=== PATIENT | male | born 1985 | race Caucasian/White ===

== ENCOUNTER 2018-10-13 10:45 | Inpatient (IN) | payer OTHER ==
[2018-10-13 11:33] LABS: ADD MAN DIFF? NO
[2018-10-13] MEDS: ONDANSETRON 4 MG INJ IV ×2 (11:33→13:24)
[2018-10-13] MEDS: HYDROmorphONE 1 MG/ML SYG IV ×2 (11:34→13:26)
[2018-10-13 11:35] LABS: ABNORMAL IP MESSAGE 1; BASOPHIL # 0.1 10^3/ul (0.0-0.1); BASOPHILS % 0.4 % (0.0-2.0); HEMOGLOBIN 17.4 g/dl (14.0-18.0); LYMPHOCYTES # 1.4 10^3/ul (0.8-2.9); MEAN CORPUSCULAR HGB CONC 34.8 g/dl (32.0-37.0); MEAN CORPUSCULAR VOLUME 80.5 fl (82.0-101.0); MEAN PLATELET VOLUME 11.7 fl (7.4-10.4); MONOCYTE # 1.5 10^3/ul (0.3-0.9); MONOCYTES % 10.8 % (0.0-11.0); NEUTROPHILS % 78.5 % (39.0-77.0); PLATELET COUNT 301 10^3/UL (140-415); POSITIVE DIFF @See below; RED BLOOD COUNT 6.21 10^6/ul (4.70-6.10); RED CELL DISTRIBUTION WIDTH 13.5 % (11.5-14.5)
[2018-10-13 12:10] LABS: ALANINE AMINOTRANSFERASE 24 IU/L (13-69); ALBUMIN 4.8 g/dl (3.3-4.9); ALKALINE PHOSPHATASE 94 IU/L (42-121); ANION GAP 27 (5-13); ASPARTATE AMINO TRANSFERASE 41 IU/L (15-46); BILIRUBIN,INDIRECT 0.7 mg/dl (0-1.1); BILIRUBIN,TOTAL 0.7 mg/dl (0.2-1.3); BLOOD UREA NITROGEN 9 mg/dl (7-20); CALCIUM 9.4 mg/dl (8.4-10.2); CARBON DIOXIDE 14 mmol/L (21-31); CHLORIDE 98 mmol/L (97-110); CREATININE 0.83 mg/dl (0.61-1.24); Estimated GFR > 60 mL/min (>60); POTASSIUM 4.8 mmol/L (3.5-5.1); SODIUM 139 mmol/L (135-144); TOTAL PROTEIN 8.8 g/dl (6.1-8.1)
[2018-10-13 12:23] LABS: GLUCOSE 526 mg/dl (70-220)
[2018-10-13 12:39] LABS: LIPASE 9005 U/L (23-300)
[2018-10-13] MEDS: SOD CHLORIDE 0.9% 100 ML (12:44)
[2018-10-13] MEDS: IOHEXOL 300MG/ML 150 ML BTL (12:45)
[2018-10-13] MEDS: INSULIN LISPRO 100 UNIT/ML VIAL SC ×2 (13:07→22:41)
[2018-10-13] MEDS ORDERED: LIDOCAINE/MYLANTA 40 ML BTL (17:39)
[2018-10-13] MEDS: HYDROmorphONE 0.5 MG/0.5 ML SYG IV (18:18)
[2018-10-13] MEDS: SOD CHLORIDE 0.9% 1,000 ML IV ×3 (20:14→23:01)
[2018-10-13] MEDS: KETOROLAC 15 MG INJ IV (22:43)
[2018-10-13] MEDS: LORAZEPAM 2 MG INJ IV (23:01)
[2018-10-14] MEDS: HYDROmorphONE 2 MG/ML SYG IV (01:57)
[2018-10-14] MEDS ORDERED: DEXTROSE 50% 50 ML SYRINGE IV ×4 (02:00→06:30)
[2018-10-14] MEDS ORDERED: INSULIN HUMAN REGULAR 100 UNIT in SOD CHLORIDE 0.9% 99 ML IV (02:00)
[2018-10-14] MEDS ORDERED: NS + KCL 20 MEQ 1,000 ML IV (02:00)
[2018-10-14] MEDS ORDERED: CEFEPIME 2GM/50 ML (PMX) 50 ML IVPB (02:22)
[2018-10-14] MEDS: SODIUM CHLORIDE 0.9% 1L BAG IV* (02:22)
[2018-10-14 02:24] LABS: MODE ROOM AIR; MetHgb Venous 0.3 %; Sample Type Blood venous; Site VENOUS LINE; Venous COHb 1.1 %; Venous Fraction OxyHgb 83.1 %; Venous Oxygen Sat 84.3 mmHG (55.0-75.0); Venous Total Hemglobin 16.3 g/dl
[2018-10-14] MEDS: ACCU-CHEK XX (02:36)
[2018-10-14 02:45] LABS: ADD UMIC YES; UR ASCORBIC ACID NEGATIVE (NEGATIVE); UR BILIRUBIN (Dip) NEGATIVE (NEGATIVE); UR BLOOD (Dip) 1+ mg/dL (NEGATIVE); UR CLARITY CLEAR (CLEAR); UR COLOR YELLOW (YELLOW); UR GLUCOSE (Dip) 3+ mg/dL (NEGATIVE); UR KETONES (Dip) 2+ mg/dL (NEGATIVE); UR LEUKOCYTE ESTERASE (Dip) NEGATIVE Leu/ul (NEGATIVE); UR NITRITE (Dip) NEGATIVE (NEGATIVE); UR RBC 7 /HPF (0-5); UR SPECIFIC GRAVITY (Dip) 1.037 (1.003-1.030); UR TOTAL PROTEIN (Dip) 3+ mg/dl (NEGATIVE); UR UROBILINOGEN (Dip) NEGATIVE (NEGATIVE); UR WBC 1 /HPF (0-5)
[2018-10-14] MEDS: PIPER-TAZO 3.375 GM IV (PMX) 100 ML IVPB (02:47)
[2018-10-14] MEDS: ACETAMINOPHEN 325 MG TAB PO (02:47)
[2018-10-14 04:10] LABS: ALANINE AMINOTRANSFERASE 8 IU/L (13-69); ALBUMIN 3.3 g/dl (3.3-4.9); ALBUMIN/GLOBULIN RATIO 0.97; ALKALINE PHOSPHATASE 60 IU/L (42-121); ANION GAP 17 (5-13); ASPARTATE AMINO TRANSFERASE 29 IU/L (15-46); BILIRUBIN,INDIRECT 0.7 mg/dl (0-1.1); BILIRUBIN,TOTAL 0.7 mg/dl (0.2-1.3); BLOOD UREA NITROGEN 9 mg/dl (7-20); CALCIUM 6.9 mg/dl (8.4-10.2); CARBON DIOXIDE 19 mmol/L (21-31); CHLORIDE 102 mmol/L (97-110); CREATININE 0.82 mg/dl (0.61-1.24); Estimated GFR > 60 mL/min (>60); GLUCOSE 332 mg/dl (70-220); POTASSIUM 3.9 mmol/L (3.5-5.1); SODIUM 138 mmol/L (135-144); TOTAL PROTEIN 6.7 g/dl (6.1-8.1)
[2018-10-14 04:21] LABS: TROPONIN-I < 0.012 ng/ml (0.000-0.120)
[2018-10-14 04:23] LABS: INR 1.27; PARTIAL THROMBOPLASTIN TIME 27.4 Sec (23.0-35.0); PT RATIO 1.3
[2018-10-14] MEDS ORDERED: SOD CHLORIDE 0.9% 1,000 ML IV (06:02)
[2018-10-14] MEDS ORDERED: GLUCAGON 1 MG INJ IM (06:30)
[2018-10-14] MEDS ORDERED: ALBUTEROL/IPRATROPIUM (NEB) 3 ML AMP HHN (06:30)
[2018-10-14] MEDS ORDERED: NACL 0.9% 3 ML SYG IV (06:30)
[2018-10-14] MEDS ORDERED: GLUCOSE GEL 15 GRAM TUBE PO ×2 (06:30)
[2018-10-14] MEDS ORDERED: GLUCOSE GEL 15 GRAM TUBE BUCCAL (06:30)
[2018-10-14 06:54] LABS: ABNORMAL IP MESSAGE 1; HEMATOCRIT 44.4 % (42.0-52.0); MEAN CORPUSCULAR HEMOGLOBIN 27.5 pg (29.0-33.0); MEAN CORPUSCULAR HGB CONC 33.8 g/dl (32.0-37.0); MEAN CORPUSCULAR VOLUME 81.5 fl (82.0-101.0); MEAN PLATELET VOLUME 11.2 fl (7.4-10.4); PLATELET COUNT 206 10^3/UL (140-415); POSITIVE DIFF @See below; RED BLOOD COUNT 5.45 10^6/ul (4.70-6.10); RED CELL DISTRIBUTION WIDTH 13.9 % (11.5-14.5)
[2018-10-14 06:54] LABS: WHITE BLOOD COUNT 7.4 10^3/ul (4.8-10.8)
[2018-10-14 07:02] LABS: ADD MAN DIFF? YES
[2018-10-14 07:14] LABS: LACTIC ACID 1.4 mmol/L (0.5-2.0)
[2018-10-14 07:28] LABS: ANION GAP 11 (5-13); BLOOD UREA NITROGEN 9 mg/dl (7-20); CALCIUM 6.8 mg/dl (8.4-10.2); CARBON DIOXIDE 18 mmol/L (21-31); CHLORIDE 106 mmol/L (97-110); Estimated GFR > 60 mL/min (>60); GLUCOSE 309 mg/dl (70-220); MAGNESIUM 1.3 mg/dl (1.7-2.5); PHOSPHORUS 2.4 mg/dl (2.5-4.9); POTASSIUM 4.2 mmol/L (3.5-5.1); SODIUM 135 mmol/L (135-144)
[2018-10-14 08:06] LABS: BAND NEUTROPHILS #M 2.9 10^3/ul (0.0-0.6); BAND NEUTROPHILS % (M) 40 % (0-4); ERYTHROBLAST% (NRBC) (M) 1 % (0-0); GIANT THROMBO% (M) 1 % (0-0); LYMPHOCYTES #M 2.3 10^3/ul (0.8-2.9); LYMPHOCYTES % (M) 32 % (15-51); MONOCYTE #M 0.8 10^3/ul (0.3-0.9); MONOCYTES % (M) 12 % (0-11); MYELOCYTES #M 0.1 10^3/ul (0.0-0.0); MYELOCYTES % (M) 2 % (0-0); PLATELET ESTIMATE NORMAL; POIKILOCYTOSIS 1+ (0-0); POLYCHROMASIA 1+ (0-0); REACTIVE LYMPHOCYTES #M 0.1 10^3/ul (0.0-0.0); REACTIVE LYMPHOCYTES% (M) 2 % (0-0); SEG NEUT #M 1.1 10^3/ul (1.6-7.5); SEGMENTED NEUTROPHILS (M) % 12 % (39-77); SMUDGE%M 25 % (0-0); SPHEROCYTES 1+ (0-0)
[2018-10-14] MEDS: HEPARIN 5,000 UNIT/1 ML VIAL SC ×2 (08:47→20:20)
[2018-10-14] MEDS: INSULIN ASPART [NOVOLOG] 3 ML PEN SC ×4 (08:51→20:21)
[2018-10-14] MEDS: CEFTRIAXONE 1 GM/50 ML (PMX) 50 ML IVPB (08:51)
[2018-10-14] MEDS: SOD CHLORIDE 0.9% 500 ML IV (08:55)
[2018-10-14] MEDS: HYDROCODONE/APAP (5/325) TAB PO (08:55)
[2018-10-14] MEDS: INSULIN GLARGINE [LANTus] (100 UNITS/ML) SYG SC (10:00)
[2018-10-14 13:51] LABS: ETHANOL < 10.0 mg/dl (0-0)
[2018-10-14] MEDS: MAGNESIUM SULFATE 3 GM in DEXTROSE 5% 100 ML IVPB (15:03)
[2018-10-14] MEDS: LORAZEPAM 2 MG INJ IV ×4 (15:04→21:58)
[2018-10-14] MEDS: MULTIVITAMINS 10 ML, FOLIC ACID 1 MG in SOD CHLORIDE 0.9% 1,000 ML IVPB (17:40)
[2018-10-14] MEDS: NPH, HUMAN INSULIN ISOPHANE 3ML VIAL SC (17:53)
[2018-10-14] MEDS: SODIUM PHOSPHATE 20 MEQ in SOD CHLORIDE 0.9% 250 ML IVPB (18:24)
[2018-10-14] MEDS: morphine SULFATE/PF (2 MG/2 ML) SYG IV ×2 (20:14→23:21)
[2018-10-15] MEDS: LORAZEPAM 2 MG INJ IV ×4 (00:45→22:18)
[2018-10-15] MEDS ORDERED: ACCU-CHEK XX (02:00)
[2018-10-15] MEDS: SOD CHLORIDE 0.9% 1,000 ML IV ×4 (02:25→22:53)
[2018-10-15] MEDS: INSULIN ASPART [NOVOLOG] 3 ML PEN SC ×6 (02:27→21:28)
[2018-10-15] MEDS: morphine SULFATE/PF (2 MG/2 ML) SYG IV ×3 (02:43→21:18)
[2018-10-15] MEDS: ACETAMINOPHEN 325 MG TAB PO (04:55)
[2018-10-15 06:21] LABS: ADD MAN DIFF? NO
[2018-10-15 06:29] LABS: ABNORMAL IP MESSAGE 1; BASOPHIL # 0.1 10^3/ul (0.0-0.1); BASOPHILS % 1.2 % (0.0-2.0); HEMOGLOBIN 13.8 g/dl (14.0-18.0); LYMPHOCYTES # 1.2 10^3/ul (0.8-2.9); LYMPHOCYTES % 15.6 % (15.0-51.0); MEAN CORPUSCULAR HEMOGLOBIN 27.5 pg (29.0-33.0); MEAN CORPUSCULAR HGB CONC 33.7 g/dl (32.0-37.0); MEAN CORPUSCULAR VOLUME 81.7 fl (82.0-101.0); MEAN PLATELET VOLUME 11.8 fl (7.4-10.4); MONOCYTE # 0.9 10^3/ul (0.3-0.9); MONOCYTES % 12.1 % (0.0-11.0); NEUTROPHIL # 5.2 10^3/ul (1.6-7.5); PLATELET COUNT 196 10^3/UL (140-415); POSITIVE DIFF @See below; RED BLOOD COUNT 5.02 10^6/ul (4.70-6.10); RED CELL DISTRIBUTION WIDTH 13.8 % (11.5-14.5)
[2018-10-15 06:29] LABS: WHITE BLOOD COUNT 7.4 10^3/ul (4.8-10.8)
[2018-10-15] MEDS: CEFTRIAXONE 1 GM/50 ML (PMX) 50 ML IVPB (06:32)
[2018-10-15 06:47] LABS: PHOSPHORUS 1.7 mg/dl (2.5-4.9)
[2018-10-15 06:47] LABS: ALBUMIN 3.1 g/dl (3.3-4.9); ALBUMIN/GLOBULIN RATIO 0.96; ALKALINE PHOSPHATASE 47 IU/L (42-121); ANION GAP 10 (5-13); ASPARTATE AMINO TRANSFERASE 30 IU/L (15-46); BILIRUBIN,INDIRECT 0.6 mg/dl (0-1.1); BILIRUBIN,TOTAL 0.6 mg/dl (0.2-1.3); BLOOD UREA NITROGEN 11 mg/dl (7-20); CALCIUM 6.8 mg/dl (8.4-10.2); CARBON DIOXIDE 18 mmol/L (21-31); CHLORIDE 108 mmol/L (97-110); CHOL/HDL RATIO 9.5 RATIO; CHOLESTEROL 200 mg/dl (100-200); CREATININE 0.78 mg/dl (0.61-1.24); Estimated GFR > 60 mL/min (>60); GLUCOSE 280 mg/dl (70-220); HDL CHOLESTEROL 21 mg/dl (28-63); LDL CHOLESTEROL,CALCULATED 116 mg/dl; MAGNESIUM 2.4 mg/dl (1.7-2.5); POTASSIUM 3.6 mmol/L (3.5-5.1); SODIUM 136 mmol/L (135-144); TOTAL PROTEIN 6.3 g/dl (6.1-8.1); TRIGLYCERIDES 317 mg/dl (0-149)
[2018-10-15 06:49] LABS: ALANINE AMINOTRANSFERASE < 6 IU/L (13-69)
[2018-10-15 07:05] LABS: LIPASE 1865 U/L (23-300)
[2018-10-15] MEDS: MULTIVITAMINS 10 ML, FOLIC ACID 1 MG in SOD CHLORIDE 0.9% 1,000 ML IVPB (08:24)
[2018-10-15] MEDS: HEPARIN 5,000 UNIT/1 ML VIAL SC ×2 (08:29→21:28)
[2018-10-15] MEDS: INSULIN GLARGINE [LANTus] (100 UNITS/ML) SYG SC (08:30)
[2018-10-15] MEDS ORDERED: THIAMINE 200 MG INJ IM (11:00)
[2018-10-15] MEDS: THIAMINE 100 MG TAB PO (12:34)
[2018-10-15] MEDS: LACTATED RINGER'S 500 ML IV (16:40)
[2018-10-15] MEDS: METOPROLOL 5 MG INJ IV (16:40)
[2018-10-15] MEDS: ACETAMINOPHEN 650 MG SUPP PR (18:22)
[2018-10-15 18:29] LABS: AADO2 Arterial 93.5 mmHg (7.0-24.0); Allen Test ACCEPTAB; Arterial Base Excess -7.1 mmol/L (-3.0-3); Arterial Blood Gas Oxygen Sat 95.4 mmHG (95.0-98.0); Arterial COHb 1.4 % (0.0-3.0); Arterial Fraction of Oxyhgb 93.7 % (93.0-99.0); Arterial HCO3 16.6 mmol/L (22.0-26.0); Arterial MetHb 0.4 % (0.0-1.5); Arterial pCO2 28.6 mmhg (35-45); MODE NASAL CANNULA; Site Right Radial
[2018-10-15] MEDS: FISH OIL 1,000 MG CAP PO (22:16)
[2018-10-16] MEDS: INSULIN ASPART [NOVOLOG] 3 ML PEN SC ×6 (00:51→20:10)
[2018-10-16] MEDS: LORAZEPAM 2 MG INJ IV ×8 (02:27→23:34)
[2018-10-16] MEDS: CEFTRIAXONE 1 GM/50 ML (PMX) 50 ML IVPB (05:34)
[2018-10-16 06:33] LABS: ABNORMAL IP MESSAGE 1; HEMATOCRIT 35.9 % (42.0-52.0); HEMOGLOBIN 12.1 g/dl (14.0-18.0); MEAN CORPUSCULAR HEMOGLOBIN 27.7 pg (29.0-33.0); MEAN CORPUSCULAR HGB CONC 33.7 g/dl (32.0-37.0); MEAN CORPUSCULAR VOLUME 82.2 fl (82.0-101.0); MEAN PLATELET VOLUME 11.4 fl (7.4-10.4); NUCLEATED RED BLOOD CELLS% 0.2 /100WBC (0.0-0.0); PLATELET COUNT 223 10^3/UL (140-415); POSITIVE DIFF @See below; RED BLOOD COUNT 4.37 10^6/ul (4.70-6.10); RED CELL DISTRIBUTION WIDTH 14.1 % (11.5-14.5)
[2018-10-16 06:33] LABS: WHITE BLOOD COUNT 10.5 10^3/ul (4.8-10.8)
[2018-10-16 06:54] LABS: ADD MAN DIFF? YES
[2018-10-16 06:56] LABS: ALKALINE PHOSPHATASE 57 IU/L (42-121); AMYLASE 224 U/L (11-123); ANION GAP 11 (5-13); ASPARTATE AMINO TRANSFERASE 35 IU/L (15-46); BILIRUBIN,INDIRECT 0.6 mg/dl (0-1.1); BILIRUBIN,TOTAL 0.6 mg/dl (0.2-1.3); BLOOD UREA NITROGEN 11 mg/dl (7-20); CALCIUM 7.7 mg/dl (8.4-10.2); CARBON DIOXIDE 21 mmol/L (21-31); CHLORIDE 108 mmol/L (97-110); CREATININE 0.62 mg/dl (0.61-1.24); Estimated GFR > 60 mL/min (>60); GLUCOSE 213 mg/dl (70-220); LIPASE 658 U/L (23-300); POTASSIUM 3.4 mmol/L (3.5-5.1); SODIUM 140 mmol/L (135-144)
[2018-10-16 07:01] LABS: ALANINE AMINOTRANSFERASE < 6 IU/L (13-69)
[2018-10-16 07:15] LABS: MAGNESIUM 2.2 mg/dl (1.7-2.5)
[2018-10-16 07:15] LABS: PHOSPHORUS 1.3 mg/dl (2.5-4.9)
[2018-10-16] MEDS: MULTIVITAMINS 10 ML, FOLIC ACID 1 MG in SOD CHLORIDE 0.9% 1,000 ML IVPB (09:00)
[2018-10-16] MEDS: FISH OIL 1,000 MG CAP PO ×2 (09:00→20:08)
[2018-10-16] MEDS: HEPARIN 5,000 UNIT/1 ML VIAL SC ×2 (09:07→20:13)
[2018-10-16] MEDS: INSULIN GLARGINE [LANTus] (100 UNITS/ML) SYG SC (09:25)
[2018-10-16] MEDS: SOD PHOS MONO/DIBAS 250 MG TAB PO (10:00)
[2018-10-16 10:21] LABS: ANISOCYTOSIS 1+ (0-0); BAND NEUTROPHILS #M 4.8 10^3/ul (0.0-0.6); BAND NEUTROPHILS % (M) 46 % (0-4); BURR CELLS 2+ (0-0); GIANT THROMBO% (M) 2 % (0-0); LYMPHOCYTES #M 0.9 10^3/ul (0.8-2.9); LYMPHOCYTES % (M) 9 % (15-51); MONOCYTE #M 0.7 10^3/ul (0.3-0.9); MONOCYTES % (M) 7 % (0-11); MYELOCYTES #M 0.4 10^3/ul (0.0-0.0); MYELOCYTES % (M) 4 % (0-0); PLATELET ESTIMATE NORMAL; POIKILOCYTOSIS 3+ (0-0); PROMYELOCYTES #M 0.2 10^3/ul (0-0); PROMYELOCYTES % (M) 2 % (0-0); SEG NEUT #M 3.9 10^3/ul (1.6-7.5); SEGMENTED NEUTROPHILS (M) % 32 % (39-77); SMUDGE%M 9 % (0-0)
[2018-10-16 10:47] LABS: AMMONIA 21 umol/l (9-30)
[2018-10-16] MEDS: FUROSEMIDE 40 MG INJ IV (12:45)
[2018-10-16] MEDS: POTASSIUM PHOSPHATE 40 MEQ in SOD CHLORIDE 0.9% 250 ML IVPB (12:45)
[2018-10-16] MEDS: POTASSIUM CHLORIDE 100 ML IVPB ×2 (13:13→14:00)
[2018-10-16 13:54] LABS: AADO2 Arterial 111.8 mmHg (7.0-24.0); Allen Test ACCEPTAB; Arterial Base Excess -4.6 mmol/L (-3.0-3); Arterial Blood Gas Oxygen Sat 95.3 mmHG (95.0-98.0); Arterial COHb 0.6 % (0.0-3.0); Arterial Fraction of Oxyhgb 94.6 % (93.0-99.0); Arterial HCO3 18.3 mmol/L (22.0-26.0); Arterial MetHb 0.1 % (0.0-1.5); MODE NASAL CANNULA; Site Right Radial
[2018-10-16] MEDS: CALCITRIOL 1 MCG INJ IV (13:59)
[2018-10-16] MEDS: MEROPENEM 1 GM/50ML(PMX) 50 ML IVPB ×3 (14:00→21:03)
[2018-10-16] MEDS: SOD CHLORIDE 0.9% 1,000 ML IV ×2 (17:00→18:14)
[2018-10-16 17:09] LABS: ANION GAP 15 (5-13); BLOOD UREA NITROGEN 11 mg/dl (7-20); CARBON DIOXIDE 20 mmol/L (21-31); CHLORIDE 106 mmol/L (97-110); CREATININE 0.63 mg/dl (0.61-1.24); Estimated GFR > 60 mL/min (>60); GLUCOSE 231 mg/dl (70-220); POTASSIUM 3.3 mmol/L (3.5-5.1); SODIUM 141 mmol/L (135-144)
[2018-10-16 18:02] LABS: OCCULT BLOOD STOOL NEGATIVE (NEGATIVE)
[2018-10-16] MEDS: POTASSIUM CHLORIDE (SR) 20 MEQ TAB PO (18:12)
[2018-10-16] MEDS: HALOPERIDOL 5 MG INJ IV (20:13)
[2018-10-16] MEDS ORDERED: HALOPERIDOL 5 MG INJ IV (21:00)
[2018-10-16] MEDS: ACETAMINOPHEN 325 MG TAB PO (21:38)
[2018-10-16 22:19] LABS: AADO2 Arterial 163.5 mmHg (7.0-24.0); Allen Test ACCEPTAB; Arterial Base Excess -3.7 mmol/L (-3.0-3); Arterial Blood Gas Oxygen Sat 97.1 mmHG (95.0-98.0); Arterial COHb 0.4 % (0.0-3.0); Arterial Fraction of Oxyhgb 96.5 % (93.0-99.0); Arterial HCO3 19.3 mmol/L (22.0-26.0); Arterial MetHb 0.2 % (0.0-1.5); Arterial pCO2 29.4 mmhg (35-45); MODE HFNC; Site Right Radial
[2018-10-16] MEDS: NA BICARBONATE 8.4% 50 ML SYG IV (23:17)
[2018-10-17] MEDS: HALOPERIDOL 5 MG INJ IV ×2 (00:40→04:53)
[2018-10-17] MEDS: INSULIN ASPART [NOVOLOG] 3 ML PEN SC ×6 (01:24→22:01)
[2018-10-17] MEDS: SOD CHLORIDE 0.9% 1,000 ML IV ×3 (02:32→17:00)
[2018-10-17] MEDS: LORAZEPAM 2 MG INJ IV ×2 (03:23→16:37)
[2018-10-17 05:08] LABS: ADD MAN DIFF? NO
[2018-10-17 05:11] LABS: WHITE BLOOD COUNT 11.3 10^3/ul (4.8-10.8)
[2018-10-17 05:11] LABS: ABNORMAL IP MESSAGE 1; BASOPHILS % 0.3 % (0.0-2.0); EOSINOPHILS % 0.3 % (0.0-7.0); HEMATOCRIT 35.1 % (42.0-52.0); HEMOGLOBIN 11.6 g/dl (14.0-18.0); LYMPHOCYTES # 1.7 10^3/ul (0.8-2.9); LYMPHOCYTES % 15.3 % (15.0-51.0); MEAN CORPUSCULAR VOLUME 81.6 fl (82.0-101.0); MEAN PLATELET VOLUME 10.8 fl (7.4-10.4); MONOCYTE # 1.7 10^3/ul (0.3-0.9); MONOCYTES % 14.8 % (0.0-11.0); NEUTROPHIL # 7.2 10^3/ul (1.6-7.5); NEUTROPHILS % 63.4 % (39.0-77.0); NUCLEATED RED BLOOD CELLS% 0.3 /100WBC (0.0-0.0); PLATELET COUNT 261 10^3/UL (140-415); POSITIVE DIFF @See below; RED CELL DISTRIBUTION WIDTH 14.5 % (11.5-14.5)
[2018-10-17] MEDS: MEROPENEM 1 GM/50ML(PMX) 50 ML IVPB ×3 (05:12→22:02)
[2018-10-17 05:33] LABS: PHOSPHORUS 1.9 mg/dl (2.5-4.9)
[2018-10-17 05:35] LABS: ALANINE AMINOTRANSFERASE 17 IU/L (13-69); ALBUMIN 3.2 g/dl (3.3-4.9); ALBUMIN/GLOBULIN RATIO 0.96; ALKALINE PHOSPHATASE 67 IU/L (42-121); ANION GAP 10 (5-13); ASPARTATE AMINO TRANSFERASE 41 IU/L (15-46); BILIRUBIN,INDIRECT 0.6 mg/dl (0-1.1); BILIRUBIN,TOTAL 0.6 mg/dl (0.2-1.3); BLOOD UREA NITROGEN 10 mg/dl (7-20); CALCIUM 8.2 mg/dl (8.4-10.2); CARBON DIOXIDE 22 mmol/L (21-31); CHLORIDE 113 mmol/L (97-110); CREATININE 0.62 mg/dl (0.61-1.24); Estimated GFR > 60 mL/min (>60); GLUCOSE 221 mg/dl (70-220); POTASSIUM 3.1 mmol/L (3.5-5.1); SODIUM 145 mmol/L (135-144); TOTAL PROTEIN 6.5 g/dl (6.1-8.1)
[2018-10-17] MEDS: ACETAMINOPHEN 325 MG TAB PO (05:44)
[2018-10-17 06:20] LABS: AADO2 Arterial 163.3 mmHg (7.0-24.0); Allen Test ACCEPTAB; Arterial Base Excess -3.3 mmol/L (-3.0-3); Arterial Blood Gas Oxygen Sat 96.6 mmHG (95.0-98.0); Arterial COHb 0.7 % (0.0-3.0); Arterial Fraction of Oxyhgb 95.6 % (93.0-99.0); Arterial HCO3 20.4 mmol/L (22.0-26.0); Arterial MetHb 0.3 % (0.0-1.5); Arterial pCO2 33.2 mmhg (35-45); MODE VAPO-THERM; Site Right Radial
[2018-10-17 07:02] LABS: BAND NEUTROPHILS #M 0.1 10^3/ul (0.0-0.6); BAND NEUTROPHILS % (M) 1 % (0-4); EOSINOPHILS % (M) 2 % (0-7); GIANT THROMBO% (M) 4 % (0-0); LYMPHOCYTES #M 2.9 10^3/ul (0.8-2.9); LYMPHOCYTES % (M) 26 % (15-51); METAMYELOCYTES #M 0.2 10^3/ul (0.0-0.0); METAMYELOCYTES %M 2 % (0-0); MONOCYTES % (M) 9 % (0-11); MYELOCYTES #M 0.1 10^3/ul (0.0-0.0); MYELOCYTES % (M) 1 % (0-0); PLATELET ESTIMATE NORMAL; SEG NEUT #M 6.7 10^3/ul (1.6-7.5); SEGMENTED NEUTROPHILS (M) % 59 % (39-77); SMUDGE%M 17 % (0-0)
[2018-10-17] MEDS: POTASSIUM PHOSPHATE 40 MEQ in SOD CHLORIDE 0.9% 250 ML IVPB (07:45)
[2018-10-17 08:04] LABS: AMYLASE 107 U/L (11-123)
[2018-10-17 08:04] LABS: LIPASE 679 U/L (23-300)
[2018-10-17] MEDS: INSULIN GLARGINE [LANTus] (100 UNITS/ML) SYG SC (08:24)
[2018-10-17] MEDS: HEPARIN 5,000 UNIT/1 ML VIAL SC ×2 (08:25→22:02)
[2018-10-17] MEDS: FISH OIL 1,000 MG CAP PO ×2 (08:26→21:57)
[2018-10-17] MEDS: MULTIVITAMINS 10 ML, FOLIC ACID 1 MG in SOD CHLORIDE 0.9% 1,000 ML IVPB (09:02)
[2018-10-17] MEDS: VANCOMYCIN HCL 250 MG/5ML POSYG PO ×2 (12:26→17:25)
[2018-10-17] MEDS: CEFTRIAXONE 1 GM/50 ML (PMX) 50 ML IVPB (12:26)
[2018-10-17] MEDS: POTASSIUM CHLORIDE 100 ML IVPB ×2 (12:26→14:24)
[2018-10-17] MEDS: FLUOXETINE 20 MG CAP PO (14:01)
[2018-10-17] MEDS: OLANZAPINE 5 MG TAB PO (21:56)
[2018-10-17] MEDS: traZODone 100 MG TAB PO (21:57)
[2018-10-17] MEDS: DIVALPROEX (EC) 500 MG TAB PO (21:57)
[2018-10-18] MEDS: VANCOMYCIN HCL 250 MG/5ML POSYG PO ×5 (00:38→23:53)
[2018-10-18] MEDS: INSULIN ASPART [NOVOLOG] 3 ML PEN SC ×6 (00:39→21:20)
[2018-10-18] MEDS: SOD CHLORIDE 0.9% 1,000 ML IV ×3 (01:06→17:50)
[2018-10-18] MEDS: ACETAMINOPHEN 325 MG TAB PO ×2 (01:32→21:34)
[2018-10-18] MEDS: MEROPENEM 1 GM/50ML(PMX) 50 ML IVPB ×2 (05:23→14:28)
[2018-10-18] MEDS: FLUOXETINE 20 MG CAP PO (09:10)
[2018-10-18] MEDS: MULTIVITAMINS 10 ML, FOLIC ACID 1 MG in SOD CHLORIDE 0.9% 1,000 ML IVPB (09:10)
[2018-10-18] MEDS: FISH OIL 1,000 MG CAP PO ×2 (09:10→21:06)
[2018-10-18] MEDS: INSULIN GLARGINE [LANTus] (100 UNITS/ML) SYG SC (09:12)
[2018-10-18] MEDS: HEPARIN 5,000 UNIT/1 ML VIAL SC ×2 (09:15→21:20)
[2018-10-18] MEDS: ACETAMINOPHEN 650 MG SUPP PR (11:00)
[2018-10-18] MEDS: morphine SULFATE/PF (2 MG/2 ML) SYG IV (11:48)
[2018-10-18] MEDS: CEFTRIAXONE 1 GM/50 ML (PMX) 50 ML IVPB (11:48)
[2018-10-18] MEDS: HYDROCODONE/APAP (5/325) TAB PO ×2 (13:52→21:05)
[2018-10-18] MEDS: OLANZAPINE 5 MG TAB PO (21:00)
[2018-10-18] MEDS: traZODone 100 MG TAB PO (21:05)
[2018-10-18] MEDS: DIVALPROEX (EC) 500 MG TAB PO (21:06)
[2018-10-18] MEDS: LORAZEPAM 2 MG INJ IV (21:12)
[2018-10-19] MEDS: SOD CHLORIDE 0.9% 1,000 ML IV ×5 (01:00→20:59)
[2018-10-19] MEDS: INSULIN ASPART [NOVOLOG] 3 ML PEN SC ×6 (01:18→21:16)
[2018-10-19] MEDS: HYDROCODONE/APAP (5/325) TAB PO ×2 (04:12→17:28)
[2018-10-19] MEDS: VANCOMYCIN HCL 250 MG/5ML POSYG PO ×4 (06:05→23:52)
[2018-10-19] MEDS: morphine SULFATE/PF (2 MG/2 ML) SYG IV ×2 (07:58→16:16)
[2018-10-19] MEDS: INSULIN GLARGINE [LANTus] (100 UNITS/ML) SYG SC (08:04)
[2018-10-19] MEDS: FLUOXETINE 20 MG CAP PO (08:36)
[2018-10-19] MEDS: FISH OIL 1,000 MG CAP PO ×2 (08:36→21:00)
[2018-10-19] MEDS: HEPARIN 5,000 UNIT/1 ML VIAL SC ×2 (08:37→21:09)
[2018-10-19] MEDS: ONDANSETRON 4 MG INJ IV (08:41)
[2018-10-19] MEDS: morphine LIQ (10 MG/5 ML) CUP PO ×2 (20:00→22:58)
[2018-10-19] MEDS: traZODone 100 MG TAB PO (21:00)
[2018-10-19] MEDS: OLANZAPINE 5 MG TAB PO (21:00)
[2018-10-19] MEDS: DIVALPROEX (EC) 500 MG TAB PO (21:00)
[2018-10-20] MEDS: INSULIN ASPART [NOVOLOG] 3 ML PEN SC ×6 (00:53→21:50)
[2018-10-20] MEDS: morphine LIQ (10 MG/5 ML) CUP PO ×3 (02:36→19:41)
[2018-10-20] MEDS: SOD CHLORIDE 0.9% 1,000 ML IV ×4 (04:59→21:15)
[2018-10-20] MEDS: HYDROCODONE/APAP (5/325) TAB PO ×3 (05:03→21:08)
[2018-10-20] MEDS: VANCOMYCIN HCL 250 MG/5ML POSYG PO ×4 (05:54→23:38)
[2018-10-20 09:00] LABS: WHITE BLOOD COUNT 17.4 10^3/ul (4.8-10.8)
[2018-10-20 09:00] LABS: ABNORMAL IP MESSAGE 1; HEMATOCRIT 34.4 % (42.0-52.0); HEMOGLOBIN 11.7 g/dl (14.0-18.0); MEAN CORPUSCULAR HEMOGLOBIN 28.1 pg (29.0-33.0); MEAN CORPUSCULAR VOLUME 82.5 fl (82.0-101.0); MEAN PLATELET VOLUME 10.1 fl (7.4-10.4); NUCLEATED RED BLOOD CELLS% 0.1 /100WBC (0.0-0.0); PLATELET COUNT 365 10^3/UL (140-415); POSITIVE DIFF @See below; RED BLOOD COUNT 4.17 10^6/ul (4.70-6.10); RED CELL DISTRIBUTION WIDTH 14.4 % (11.5-14.5)
[2018-10-20] MEDS: FISH OIL 1,000 MG CAP PO ×2 (09:04→21:00)
[2018-10-20] MEDS: FLUOXETINE 20 MG CAP PO (09:04)
[2018-10-20 09:14] LABS: ADD MAN DIFF? YES
[2018-10-20] MEDS: HEPARIN 5,000 UNIT/1 ML VIAL SC ×2 (09:19→21:52)
[2018-10-20] MEDS: INSULIN GLARGINE [LANTus] (100 UNITS/ML) SYG SC (09:19)
[2018-10-20 09:22] LABS: ALANINE AMINOTRANSFERASE 17 IU/L (13-69); ALBUMIN 2.8 g/dl (3.3-4.9); ALBUMIN/GLOBULIN RATIO 0.93; ALKALINE PHOSPHATASE 69 IU/L (42-121); ANION GAP 7 (5-13); ASPARTATE AMINO TRANSFERASE 26 IU/L (15-46); BILIRUBIN,INDIRECT 0.3 mg/dl (0-1.1); BILIRUBIN,TOTAL 0.3 mg/dl (0.2-1.3); BLOOD UREA NITROGEN 5 mg/dl (7-20); CALCIUM 8.2 mg/dl (8.4-10.2); CARBON DIOXIDE 32 mmol/L (21-31); CHLORIDE 100 mmol/L (97-110); CREATININE 0.81 mg/dl (0.61-1.24); Estimated GFR > 60 mL/min (>60); GLUCOSE 248 mg/dl (70-220); MAGNESIUM 1.7 mg/dl (1.7-2.5); PHOSPHORUS 3.9 mg/dl (2.5-4.9); SODIUM 139 mmol/L (135-144); TOTAL PROTEIN 5.8 g/dl (6.1-8.1)
[2018-10-20 09:27] LABS: POTASSIUM 2.7 mmol/L (3.5-5.1)
[2018-10-20 10:04] LABS: ANISOCYTOSIS 1+ (0-0); BAND NEUTROPHILS #M 3.4 10^3/ul (0.0-0.6); BAND NEUTROPHILS % (M) 20 % (0-4); BASOPHIL #M 0.1 10^3/ul (0.0-0.0); BASOPHILS % (M) 1 % (0-2); EOSINOPHILS % (M) 1 % (0-7); GIANT THROMBO% (M) 4 % (0-0); LYMPHOCYTES #M 1.7 10^3/ul (0.8-2.9); LYMPHOCYTES % (M) 10 % (15-51); MICROCYTOSIS 1+ (0-0); MONOCYTE #M 1.3 10^3/ul (0.3-0.9); MONOCYTES % (M) 8 % (0-11); MYELOCYTES #M 0.1 10^3/ul (0.0-0.0); MYELOCYTES % (M) 1 % (0-0); PLATELET ESTIMATE NORMAL; POIKILOCYTOSIS 1+ (0-0); POLYCHROMASIA 3+ (0-0); REACTIVE LYMPHOCYTES #M 0.1 10^3/ul (0.0-0.0); REACTIVE LYMPHOCYTES% (M) 1 % (0-0); SEG NEUT #M 10.7 10^3/ul (1.6-7.5); SEGMENTED NEUTROPHILS (M) % 58 % (39-77)
[2018-10-20] MEDS: POTASSIUM CHLORIDE 100 ML IVPB ×2 (10:38→12:59)
[2018-10-20] MEDS: POTASSIUM CHLORIDE 20 MEQ POWDER FOR ORAL SOLN PO (10:38)
[2018-10-20] MEDS ORDERED: BISACODYL 10 MG SUPP PR (11:00)
[2018-10-20] MEDS: OLANZAPINE 5 MG TAB PO (21:00)
[2018-10-20] MEDS: DIVALPROEX (EC) 500 MG TAB PO (21:00)
[2018-10-20] MEDS: traZODone 100 MG TAB PO (21:00)
[2018-10-20] MEDS: SENNA TAB PO (21:00)
[2018-10-21] MEDS: INSULIN ASPART [NOVOLOG] 3 ML PEN SC ×6 (00:49→21:58)
[2018-10-21 05:52] LABS: ADD MAN DIFF? NO
[2018-10-21 06:06] LABS: WHITE BLOOD COUNT 17.4 10^3/ul (4.8-10.8)
[2018-10-21 06:06] LABS: BASOPHIL # 0.1 10^3/ul (0.0-0.1); BASOPHILS % 0.6 % (0.0-2.0); EOSINOPHILS # 0.1 10^3/ul (0.0-0.5); EOSINOPHILS % 0.4 % (0.0-7.0); HEMATOCRIT 36.3 % (42.0-52.0); LYMPHOCYTES % 11.7 % (15.0-51.0); MEAN CORPUSCULAR HEMOGLOBIN 27.5 pg (29.0-33.0); MEAN CORPUSCULAR HGB CONC 33.1 g/dl (32.0-37.0); MEAN CORPUSCULAR VOLUME 83.1 fl (82.0-101.0); MEAN PLATELET VOLUME 10.3 fl (7.4-10.4); MONOCYTE # 1.3 10^3/ul (0.3-0.9); MONOCYTES % 7.4 % (0.0-11.0); NEUTROPHIL # 13.4 10^3/ul (1.6-7.5); NEUTROPHILS % 77.2 % (39.0-77.0); PLATELET COUNT 420 10^3/UL (140-415); RED BLOOD COUNT 4.37 10^6/ul (4.70-6.10)
[2018-10-21] MEDS: VANCOMYCIN HCL 250 MG/5ML POSYG PO ×3 (06:06→16:58)
[2018-10-21] MEDS: morphine LIQ (10 MG/5 ML) CUP PO ×4 (06:31→20:15)
[2018-10-21 06:54] LABS: ANION GAP 7 (5-13); CALCIUM 8.7 mg/dl (8.4-10.2); CARBON DIOXIDE 33 mmol/L (21-31); CHLORIDE 101 mmol/L (97-110); CREATININE 0.72 mg/dl (0.61-1.24); Estimated GFR > 60 mL/min (>60); GLUCOSE 204 mg/dl (70-220); MAGNESIUM 1.9 mg/dl (1.7-2.5); PHOSPHORUS 3.4 mg/dl (2.5-4.9); SODIUM 141 mmol/L (135-144)
[2018-10-21 07:01] LABS: POTASSIUM 2.7 mmol/L (3.5-5.1)
[2018-10-21 07:14] LABS: BLOOD UREA NITROGEN 4 mg/dl (7-20)
[2018-10-21] MEDS: HYDROCODONE/APAP (5/325) TAB PO ×3 (07:33→21:25)
[2018-10-21] MEDS: FISH OIL 1,000 MG CAP PO ×2 (08:11→21:25)
[2018-10-21] MEDS: SENNA TAB PO ×2 (08:11→21:25)
[2018-10-21] MEDS: FLUOXETINE 20 MG CAP PO (08:12)
[2018-10-21] MEDS: POTASSIUM CHLORIDE (SR) 20 MEQ TAB PO (08:12)
[2018-10-21] MEDS: SOD CHLORIDE 0.9% 1,000 ML IV ×2 (08:12→15:00)
[2018-10-21] MEDS: HEPARIN 5,000 UNIT/1 ML VIAL SC ×2 (08:31→21:27)
[2018-10-21] MEDS: INSULIN GLARGINE [LANTus] (100 UNITS/ML) SYG SC (08:31)
[2018-10-21] MEDS: POTASSIUM CHLORIDE 20 MEQ POWDER FOR ORAL SOLN PO ×2 (10:50→16:58)
[2018-10-21] MEDS: MAGNESIUM SULFATE 1 GM/D5W 100 ML IVPB (10:52)
[2018-10-21 15:03] LABS: LIPASE 397 U/L (23-300)
[2018-10-21 15:03] LABS: AMYLASE 90 U/L (11-123)
[2018-10-21 15:04] LABS: ANION GAP 5 (5-13); BLOOD UREA NITROGEN 4 mg/dl (7-20); CALCIUM 8.4 mg/dl (8.4-10.2); CARBON DIOXIDE 35 mmol/L (21-31); CHLORIDE 101 mmol/L (97-110); CREATININE 0.64 mg/dl (0.61-1.24); Estimated GFR > 60 mL/min (>60); GLUCOSE 254 mg/dl (70-220); POTASSIUM 3.2 mmol/L (3.5-5.1); SODIUM 141 mmol/L (135-144)
[2018-10-21] MEDS: traZODone 100 MG TAB PO (21:24)
[2018-10-21] MEDS: DIVALPROEX (EC) 500 MG TAB PO (21:25)
[2018-10-21] MEDS: OLANZAPINE 5 MG TAB PO (21:58)
[2018-10-22] MEDS: VANCOMYCIN HCL 250 MG/5ML POSYG PO ×5 (00:50→23:27)
[2018-10-22] MEDS: INSULIN ASPART [NOVOLOG] 3 ML PEN SC ×6 (00:51→21:01)
[2018-10-22] MEDS: morphine LIQ (10 MG/5 ML) CUP PO ×5 (00:59→23:29)
[2018-10-22] MEDS: SOD CHLORIDE 0.9% 1,000 ML IV ×3 (01:20→15:40)
[2018-10-22] MEDS: HYDROCODONE/APAP (5/325) TAB PO ×3 (04:33→17:17)
[2018-10-22] MEDS: FISH OIL 1,000 MG CAP PO ×2 (08:13→21:07)
[2018-10-22] MEDS: SENNA TAB PO ×2 (08:14→21:08)
[2018-10-22] MEDS: HEPARIN 5,000 UNIT/1 ML VIAL SC ×2 (08:22→21:00)
[2018-10-22] MEDS: INSULIN GLARGINE [LANTus] (100 UNITS/ML) SYG SC (08:23)
[2018-10-22 08:38] LABS: ADD MAN DIFF? NO
[2018-10-22 08:41] LABS: WHITE BLOOD COUNT 15.9 10^3/ul (4.8-10.8)
[2018-10-22 08:41] LABS: BASOPHIL # 0.1 10^3/ul (0.0-0.1); BASOPHILS % 0.3 % (0.0-2.0); EOSINOPHILS # 0.1 10^3/ul (0.0-0.5); EOSINOPHILS % 0.6 % (0.0-7.0); HEMATOCRIT 32.6 % (42.0-52.0); HEMOGLOBIN 10.7 g/dl (14.0-18.0); LYMPHOCYTES # 1.5 10^3/ul (0.8-2.9); LYMPHOCYTES % 9.5 % (15.0-51.0); MEAN CORPUSCULAR HEMOGLOBIN 27.8 pg (29.0-33.0); MEAN CORPUSCULAR HGB CONC 32.8 g/dl (32.0-37.0); MEAN CORPUSCULAR VOLUME 84.7 fl (82.0-101.0); MONOCYTE # 1.3 10^3/ul (0.3-0.9); MONOCYTES % 7.9 % (0.0-11.0); NEUTROPHIL # 12.8 10^3/ul (1.6-7.5); NEUTROPHILS % 80.4 % (39.0-77.0); PLATELET COUNT 423 10^3/UL (140-415); RED BLOOD COUNT 3.85 10^6/ul (4.70-6.10); RED CELL DISTRIBUTION WIDTH 14.4 % (11.5-14.5)
[2018-10-22 09:02] LABS: ANION GAP 8 (5-13); BLOOD UREA NITROGEN 3 mg/dl (7-20); CALCIUM 8.1 mg/dl (8.4-10.2); CARBON DIOXIDE 32 mmol/L (21-31); CHLORIDE 101 mmol/L (97-110); CREATININE 0.64 mg/dl (0.61-1.24); Estimated GFR > 60 mL/min (>60); GLUCOSE 157 mg/dl (70-220); SODIUM 141 mmol/L (135-144)
[2018-10-22 09:08] LABS: POTASSIUM 2.9 mmol/L (3.5-5.1)
[2018-10-22] MEDS: FLUOXETINE 20 MG CAP PO (09:55)
[2018-10-22] MEDS: POTASSIUM CHLORIDE 20 MEQ POWDER FOR ORAL SOLN PO (11:04)
[2018-10-22] MEDS: POTASSIUM CHLORIDE 100 ML IVPB (11:42)
[2018-10-22] MEDS: DIVALPROEX (EC) 500 MG TAB PO (21:06)
[2018-10-22] MEDS: traZODone 100 MG TAB PO (21:06)
[2018-10-22] MEDS: OLANZAPINE 5 MG TAB PO (21:08)
[2018-10-23] MEDS: HYDROmorphONE 0.5 MG/0.5 ML SYG IV (00:12)
[2018-10-23] MEDS: SOD CHLORIDE 0.9% 500 ML IV (01:06)
[2018-10-23] MEDS: INSULIN ASPART [NOVOLOG] 3 ML PEN SC ×6 (01:43→20:39)
[2018-10-23] MEDS: HYDROCODONE/APAP (5/325) TAB PO ×4 (01:47→22:59)
[2018-10-23 02:28] LABS: LACTIC ACID 0.9 mmol/L (0.5-2.0)
[2018-10-23] MEDS: SOD CHLORIDE 0.9% 1,000 ML IV ×4 (02:46→23:03)
[2018-10-23] MEDS: VANCOMYCIN HCL 250 MG/5ML POSYG PO ×4 (05:00→23:03)
[2018-10-23 07:54] LABS: ADD MAN DIFF? NO
[2018-10-23 07:59] LABS: BASOPHILS % 0.2 % (0.0-2.0); EOSINOPHILS # 0.1 10^3/ul (0.0-0.5); EOSINOPHILS % 0.6 % (0.0-7.0); HEMATOCRIT 35.4 % (42.0-52.0); HEMOGLOBIN 11.5 g/dl (14.0-18.0); LYMPHOCYTES # 2.3 10^3/ul (0.8-2.9); LYMPHOCYTES % 15.8 % (15.0-51.0); MEAN CORPUSCULAR HEMOGLOBIN 27.6 pg (29.0-33.0); MEAN CORPUSCULAR HGB CONC 32.5 g/dl (32.0-37.0); MEAN CORPUSCULAR VOLUME 85.1 fl (82.0-101.0); MEAN PLATELET VOLUME 9.9 fl (7.4-10.4); MONOCYTE # 1.4 10^3/ul (0.3-0.9); MONOCYTES % 9.5 % (0.0-11.0); NEUTROPHIL # 10.7 10^3/ul (1.6-7.5); NEUTROPHILS % 72.5 % (39.0-77.0); PLATELET COUNT 492 10^3/UL (140-415); RED BLOOD COUNT 4.16 10^6/ul (4.70-6.10); RED CELL DISTRIBUTION WIDTH 14.5 % (11.5-14.5)
[2018-10-23 07:59] LABS: WHITE BLOOD COUNT 14.7 10^3/ul (4.8-10.8)
[2018-10-23] MEDS: SENNA TAB PO ×2 (08:10→20:29)
[2018-10-23] MEDS: FLUOXETINE 20 MG CAP PO (08:10)
[2018-10-23] MEDS: FISH OIL 1,000 MG CAP PO ×2 (08:10→20:29)
[2018-10-23] MEDS: INSULIN GLARGINE [LANTus] (100 UNITS/ML) SYG SC (08:11)
[2018-10-23] MEDS: HEPARIN 5,000 UNIT/1 ML VIAL SC ×2 (08:12→20:40)
[2018-10-23 08:14] LABS: ANION GAP 3 (5-13); BLOOD UREA NITROGEN 3 mg/dl (7-20); CALCIUM 8.2 mg/dl (8.4-10.2); CARBON DIOXIDE 36 mmol/L (21-31); CHLORIDE 104 mmol/L (97-110); CREATININE 0.73 mg/dl (0.61-1.24); Estimated GFR > 60 mL/min (>60); GLUCOSE 149 mg/dl (70-220); MAGNESIUM 1.9 mg/dl (1.7-2.5); PHOSPHORUS 4.1 mg/dl (2.5-4.9); POTASSIUM 3.1 mmol/L (3.5-5.1); SODIUM 143 mmol/L (135-144)
[2018-10-23] MEDS: POTASSIUM CHLORIDE 20 MEQ POWDER FOR ORAL SOLN PO (09:14)
[2018-10-23] MEDS: morphine LIQ (10 MG/5 ML) CUP PO ×3 (12:17→20:27)
[2018-10-23] MEDS: DIVALPROEX (EC) 500 MG TAB PO (20:28)
[2018-10-23] MEDS: traZODone 100 MG TAB PO (20:29)
[2018-10-23] MEDS: OLANZAPINE 5 MG TAB PO (20:29)
[2018-10-24] MEDS: morphine LIQ (10 MG/5 ML) CUP PO ×5 (00:51→21:08)
[2018-10-24] MEDS: INSULIN ASPART [NOVOLOG] 3 ML PEN SC ×6 (00:56→21:17)
[2018-10-24] MEDS: VANCOMYCIN HCL 250 MG/5ML POSYG PO ×3 (05:02→17:28)
[2018-10-24] MEDS: SOD CHLORIDE 0.9% 1,000 ML IV ×3 (06:56→15:46)
[2018-10-24 07:25] LABS: ADD MAN DIFF? NO
[2018-10-24 07:33] LABS: BASOPHILS % 0.2 % (0.0-2.0); EOSINOPHILS # 0.1 10^3/ul (0.0-0.5); EOSINOPHILS % 0.7 % (0.0-7.0); HEMOGLOBIN 10.5 g/dl (14.0-18.0); LYMPHOCYTES # 1.4 10^3/ul (0.8-2.9); LYMPHOCYTES % 11.8 % (15.0-51.0); MEAN CORPUSCULAR HEMOGLOBIN 27.9 pg (29.0-33.0); MEAN CORPUSCULAR HGB CONC 32.8 g/dl (32.0-37.0); MEAN CORPUSCULAR VOLUME 84.9 fl (82.0-101.0); MEAN PLATELET VOLUME 10.1 fl (7.4-10.4); MONOCYTE # 1.2 10^3/ul (0.3-0.9); MONOCYTES % 10.2 % (0.0-11.0); NEUTROPHIL # 9.1 10^3/ul (1.6-7.5); NEUTROPHILS % 75.9 % (39.0-77.0); PLATELET COUNT 460 10^3/UL (140-415); RED BLOOD COUNT 3.77 10^6/ul (4.70-6.10); RED CELL DISTRIBUTION WIDTH 14.3 % (11.5-14.5)
[2018-10-24 07:50] LABS: ANION GAP 5 (5-13); BLOOD UREA NITROGEN 3 mg/dl (7-20); CALCIUM 7.8 mg/dl (8.4-10.2); CARBON DIOXIDE 34 mmol/L (21-31); CHLORIDE 102 mmol/L (97-110); CREATININE 0.65 mg/dl (0.61-1.24); Estimated GFR > 60 mL/min (>60); GLUCOSE 263 mg/dl (70-220); POTASSIUM 3.5 mmol/L (3.5-5.1); SODIUM 141 mmol/L (135-144)
[2018-10-24 07:53] LABS: AMYLASE 40 U/L (11-123)
[2018-10-24 07:53] LABS: LIPASE 345 U/L (23-300)
[2018-10-24] MEDS: FLUOXETINE 20 MG CAP PO (08:23)
[2018-10-24] MEDS: HYDROCODONE/APAP (5/325) TAB PO ×2 (08:23→14:59)
[2018-10-24] MEDS: FISH OIL 1,000 MG CAP PO ×2 (08:23→21:09)
[2018-10-24] MEDS: SENNA TAB PO ×2 (08:23→21:09)
[2018-10-24] MEDS: INSULIN GLARGINE [LANTus] (100 UNITS/ML) SYG SC (08:30)
[2018-10-24] MEDS: HEPARIN 5,000 UNIT/1 ML VIAL SC ×2 (08:31→21:17)
[2018-10-24] MEDS: DIVALPROEX (EC) 500 MG TAB PO (21:09)
[2018-10-24] MEDS: OLANZAPINE 5 MG TAB PO (21:09)
[2018-10-24] MEDS: traZODone 100 MG TAB PO (21:10)
[2018-10-25] MEDS: VANCOMYCIN HCL 250 MG/5ML POSYG PO ×5 (00:38→23:52)
[2018-10-25] MEDS: SOD CHLORIDE 0.9% 1,000 ML IV ×2 (00:39→07:59)
[2018-10-25] MEDS: HYDROCODONE/APAP (5/325) TAB PO ×3 (00:39→16:33)
[2018-10-25] MEDS: INSULIN ASPART [NOVOLOG] 3 ML PEN SC ×7 (00:43→23:58)
[2018-10-25] MEDS: morphine LIQ (10 MG/5 ML) CUP PO ×3 (04:11→20:40)
[2018-10-25] MEDS: SENNA TAB PO ×2 (08:12→20:42)
[2018-10-25] MEDS: FLUOXETINE 20 MG CAP PO (08:13)
[2018-10-25] MEDS: FISH OIL 1,000 MG CAP PO ×2 (08:13→20:42)
[2018-10-25] MEDS: INSULIN GLARGINE [LANTus] (100 UNITS/ML) SYG SC (08:14)
[2018-10-25] MEDS: HEPARIN 5,000 UNIT/1 ML VIAL SC ×2 (08:14→20:35)
[2018-10-25 08:31] LABS: ADD MAN DIFF? NO
[2018-10-25 08:33] LABS: WHITE BLOOD COUNT 11.3 10^3/ul (4.8-10.8)
[2018-10-25 08:33] LABS: BASOPHILS % 0.2 % (0.0-2.0); EOSINOPHILS # 0.1 10^3/ul (0.0-0.5); EOSINOPHILS % 0.6 % (0.0-7.0); HEMATOCRIT 33.5 % (42.0-52.0); HEMOGLOBIN 10.9 g/dl (14.0-18.0); LYMPHOCYTES # 2.2 10^3/ul (0.8-2.9); LYMPHOCYTES % 19.3 % (15.0-51.0); MEAN CORPUSCULAR HEMOGLOBIN 27.6 pg (29.0-33.0); MEAN CORPUSCULAR HGB CONC 32.5 g/dl (32.0-37.0); MEAN CORPUSCULAR VOLUME 84.8 fl (82.0-101.0); MEAN PLATELET VOLUME 9.2 fl (7.4-10.4); MONOCYTE # 1.2 10^3/ul (0.3-0.9); MONOCYTES % 10.5 % (0.0-11.0); NEUTROPHIL # 7.7 10^3/ul (1.6-7.5); PLATELET COUNT 537 10^3/UL (140-415); RED BLOOD COUNT 3.95 10^6/ul (4.70-6.10); RED CELL DISTRIBUTION WIDTH 14.3 % (11.5-14.5)
[2018-10-25 09:04] LABS: ANION GAP 1 (5-13); BLOOD UREA NITROGEN 3 mg/dl (7-20); CARBON DIOXIDE 36 mmol/L (21-31); CHLORIDE 106 mmol/L (97-110); CREATININE 0.68 mg/dl (0.61-1.24); Estimated GFR > 60 mL/min (>60); GLUCOSE 164 mg/dl (70-220); MAGNESIUM 1.8 mg/dl (1.7-2.5); PHOSPHORUS 3.3 mg/dl (2.5-4.9); POTASSIUM 3.3 mmol/L (3.5-5.1); SODIUM 143 mmol/L (135-144)
[2018-10-25] MEDS: POTASSIUM CHLORIDE (SR) 20 MEQ TAB PO (14:22)
[2018-10-25] MEDS: DIVALPROEX (EC) 500 MG TAB PO (20:41)
[2018-10-25] MEDS: traZODone 100 MG TAB PO (20:42)
[2018-10-25] MEDS: OLANZAPINE 5 MG TAB PO (20:43)
[2018-10-26] MEDS: morphine LIQ (10 MG/5 ML) CUP PO ×4 (00:10→17:14)
[2018-10-26] MEDS: INSULIN ASPART [NOVOLOG] 3 ML PEN SC ×4 (04:59→17:13)
[2018-10-26] MEDS: VANCOMYCIN HCL 250 MG/5ML POSYG PO ×3 (05:00→17:12)
[2018-10-26 06:12] LABS: ADD MAN DIFF? NO
[2018-10-26 06:18] LABS: WHITE BLOOD COUNT 10.6 10^3/ul (4.8-10.8)
[2018-10-26 06:18] LABS: BASOPHILS % 0.3 % (0.0-2.0); EOSINOPHILS # 0.1 10^3/ul (0.0-0.5); EOSINOPHILS % 0.7 % (0.0-7.0); HEMATOCRIT 31.8 % (42.0-52.0); HEMOGLOBIN 10.3 g/dl (14.0-18.0); LYMPHOCYTES # 2.1 10^3/ul (0.8-2.9); LYMPHOCYTES % 19.8 % (15.0-51.0); MEAN CORPUSCULAR HEMOGLOBIN 27.2 pg (29.0-33.0); MEAN CORPUSCULAR HGB CONC 32.4 g/dl (32.0-37.0); MEAN CORPUSCULAR VOLUME 84.1 fl (82.0-101.0); MEAN PLATELET VOLUME 9.5 fl (7.4-10.4); MONOCYTE # 1.1 10^3/ul (0.3-0.9); MONOCYTES % 10.4 % (0.0-11.0); NEUTROPHIL # 7.1 10^3/ul (1.6-7.5); NEUTROPHILS % 67.5 % (39.0-77.0); PLATELET COUNT 551 10^3/UL (140-415); RED BLOOD COUNT 3.78 10^6/ul (4.70-6.10); RED CELL DISTRIBUTION WIDTH 14.1 % (11.5-14.5)
[2018-10-26 06:53] LABS: ANION GAP 7 (5-13); BLOOD UREA NITROGEN 3 mg/dl (7-20); CALCIUM 8.2 mg/dl (8.4-10.2); CARBON DIOXIDE 31 mmol/L (21-31); CHLORIDE 103 mmol/L (97-110); CREATININE 0.55 mg/dl (0.61-1.24); Estimated GFR > 60 mL/min (>60); GLUCOSE 139 mg/dl (70-220); SODIUM 141 mmol/L (135-144)
[2018-10-26] MEDS: FISH OIL 1,000 MG CAP PO (08:23)
[2018-10-26] MEDS: SENNA TAB PO (08:23)
[2018-10-26] MEDS: FLUOXETINE 20 MG CAP PO (08:23)
[2018-10-26] MEDS: INSULIN GLARGINE [LANTus] (100 UNITS/ML) SYG SC (08:26)
[2018-10-26] MEDS: HEPARIN 5,000 UNIT/1 ML VIAL SC (08:26)
[2018-10-26] MEDS: POTASSIUM CHLORIDE (SR) 20 MEQ TAB PO (12:22)
== END 2018-10-26 18:55 | disposition home or self-care (01) | DRG 438 ==
LOC: TEL 10-16 06:39 → 5EC 10-21 20:25 → ICU 10-16 10:53 → 6WM 10-18 18:18 → E/R 10:45 → TEL 10-14 03:25
PROC: 5A09357 Assistance with Respiratory Ventilation, Less than 24 Consecutive Hours, Continuous Positive Airway Pressure (ICD-10-PCS; principal; 2018-10-16)
DX: K85.90 Acute pancreatitis without necrosis or infection, unspecified (principal); E11.10 Type 2 diabetes mellitus with ketoacidosis without coma; J96.00 Acute respiratory failure, unspecified whether with hypoxia or hypercapnia; F10.239 Alcohol dependence with withdrawal, unspecified; R65.10 Systemic inflammatory response syndrome (SIRS) of non-infectious origin without acute organ dysfunction; A04.72 Enterocolitis due to Clostridium difficile, not specified as recurrent; I10 Essential (primary) hypertension; F25.9 Schizoaffective disorder, unspecified; F17.200 Nicotine dependence, unspecified, uncomplicated; F10.229 Alcohol dependence with intoxication, unspecified; F41.9 Anxiety disorder, unspecified; E78.5 Hyperlipidemia, unspecified; E66.9 Obesity, unspecified; Z68.38 Body mass index [BMI] 38.0-38.9, adult; R56.9 Unspecified convulsions; K59.00 Constipation, unspecified
CPT/HCPCS: 36415; 36600; 71045; 74176; 74177; 74181; 76705; 80048; 80053; 80061; 80307; 81001; 82140; 82150; 82270; 82306; 82330; 82652; 82787; 82803; 82962; 83036; 83605; 83690; 83735; 84100; 84484; 85025; 85610; 85730; 87040; 87075; 87081; 87086; 93005; 94660; 96372; 96374; 96375; 96376; 97110; 97116; 97161; 97530; 99285-25

== ENCOUNTER 2019-02-13 08:21 | Emergency (ER) | payer OTHER | END 2019-02-13 08:57 | disposition home or self-care (01) | LOC: FTE 08:21 | DX: E11.9 Type 2 diabetes mellitus without complications (principal); I10 Essential (primary) hypertension; Z79.4 Long term (current) use of insulin; Z87.891 Personal history of nicotine dependence | CPT/HCPCS: 82962; 99281 ==

== ENCOUNTER 2019-04-06 15:52 | Emergency (ER) | payer OTHER | END 2019-04-06 16:44 | disposition home or self-care (01) | LOC: E/R 16:44 | DX: Z76.0 Encounter for issue of repeat prescription (principal); I10 Essential (primary) hypertension; E11.9 Type 2 diabetes mellitus without complications; Z79.4 Long term (current) use of insulin; Z87.891 Personal history of nicotine dependence | CPT/HCPCS: 99281; Z7502 ==